=== PATIENT | female | born 1960 | race Caucasian/White ===

== ENCOUNTER → 2018-12-26 | Outpatient (CLI) | payer OTHER ==
[~2018-12-26] MED LIST: ADDERALL 30 MG30 MG PO; ALIGN4 MG PO; AMBIEN 10 MG TA10 MG PO; CARDIZEM CD240 MG PO; CARISOPRODOL 3350 MG PO; CIPRO500 MG PO; COZAAR 50 MG TA50 M2 PO; CYMBALTA30 MG PO; CYMBALTA60 MG PO; HYDROCHLOROTHIA25 M2 PO; HYDROCODONE-AP1 EAC6 PO; LEVOTHYROXIN0.075 MG PO; NABUMETONE 500500 M1 PO; XANAX1 MG PO
== END ==
LOC: CAT 09:50
DX: Z13.6 Encounter for screening for cardiovascular disorders (principal); E78.00 Pure hypercholesterolemia, unspecified; I25.10 Atherosclerotic heart disease of native coronary artery without angina pectoris

== ENCOUNTER → 2018-12-26 | Outpatient (CLI) | payer OTHER | LOC: RAD 11:01 | DX: Z12.31 Encounter for screening mammogram for malignant neoplasm of breast (principal) ==